=== PATIENT | female | born 1990 | race Caucasian/White ===

== ENCOUNTER 2017-02-11 09:18 | Emergency (ER) | payer OTHER, BC ==
[~2017-02-11] VITALS: Ht 172.7 cm; Wt 106.0 kg
--- NOTE | 2017-02-11 09:34 | NUR ---
pt on control but does not know med
[2017-02-11 10:12] VITALS: BP 137/96
--- NOTE | 2017-02-11 12:53 | Diagnostic Imaging Report ---
INDICATION: Trauma. Pain. COMPARISON: None. FINDINGS: Three views of the left fifth finger are obtained. No acute fracture, malalignment, or osseous destructive process is seen. IMPRESSION: Negative left fifth finger. Dictated by: Dictated on workstation # [id number]
--- NOTE | 2017-02-19 09:53 | NUR ---
dr used sautering on top of finger, no I and D done
== END 2017-02-11 10:17 | disposition home or self-care (01) ==
LOC: EDUNIT# 09:18 → ED 09:28
DX: S67.191A Crushing injury of left index finger, initial encounter (principal); S60.152A Contusion of left little finger with damage to nail, initial encounter; W23.0XXA Caught, crushed, jammed, or pinched between moving objects, initial encounter; Y93.89 Activity, other specified; Y92.510 Bank as the place of occurrence of the external cause; Y99.0 Civilian activity done for income or pay
CPT/HCPCS: 11740; 99282